=== PATIENT | male | born 1970 | race Hispanic/Latino ===

== ENCOUNTER 2017-10-10 13:02 | Emergency (ER) | payer OTHER ==
[2017-10-10] MEDS ORDERED: ALBUTEROL 2.5 MG/3 ML NEB SOL ONE ×3 (15:04→17:15)
[2017-10-10] MEDS ORDERED: IPRATROPIUM BROM 0.5MG/2.5ML ONE (15:04)
[2017-10-10] MEDS ORDERED: METHYLPREDNISOLONE 125 MG INJ ONE (15:19)
[2017-10-10] MEDS ORDERED: AZITHROMYCIN 250 MG TAB ONE (15:20)
[2017-10-10] MEDS ORDERED: NA CHLORIDE 0.9% 1,000 ML ONE (15:20)
[2017-10-10] MEDS ORDERED: CEFTRIAXONE/SWI 1gm 1 GM/10 ML SYR ONE (15:20)
[2017-10-10] MEDS ORDERED: predniSONE 20 MG TAB ONE (15:20)
[2017-10-10 15:22] LABS: Absolute Monocytes 1.1 K/uL (0.1-1.3); Basophils % 0.5 % (0-1.3); Eosinophils % 9.5 % (0-4.4); Hematocrit 44.4 % (39.6-49.0); Lymphocytes % 26.5 % (15.3-44.8); MCH 24.7 pg (27.0-35.0); MCV 77.5 fL (80-100); MPV 9.2 fL (7.6-11.3); Monocytes % 9.8 % (3.3-12.3); RBC Red Blood Cell Count 5.73 M/uL (4.33-5.43)
[2017-10-10 15:32] LABS: Bicarbonate 31 mEq/L (21-31); Glucose Level 107 mg/dL (65-120); Potassium 3.6 mEq/L (3.6-5.0); Sodium Level 142 mEq/L (135-145)
[2017-10-10 15:35] LABS: ALT/SGPT 25 IU/L (10-60); AST/SGOT 25 IU/L (10-42); Albumin 3.8 g/dL (3.2-5.5); Alkaline Phosphatase 85 IU/L (42-121); BUN Blood Urea Nitrogen 6 mg/dL (6-20); Bilirubin Total 0.6 mg/dL (0.3-1.2); Protein, Total 6.5 g/dL (6.0-8.3)
--- NOTE | 2017-10-10 16:43 | ER ---
Nurse's Notes [facility] Name: Maco Hardy Age: 47 yrs Sex: Male : 1970 Arrival Date: 10/10/2017 Time: 13:06 Bed 17 Private MD: Diagnosis: Asthma;Dyspnea;Hypoxemia Presentation: 10/10 13:28 Presenting complaint: Patient states: i think i have asthma that started yesterday, im hj short of breath and have wheezing; denies fever and chills;. Transition of care: patient was not received from another setting of care. Onset of symptoms was October 10, 2017. Care prior to arrival: None. 13:28 Method Of Arrival: Ambulatory hj 13:28 Acuity: CALIX[place] 3 hj Triage Assessment: 13:30 General: Appears in no apparent distress. uncomfortable, Behavior is calm, cooperative, hj appropriate for age. Pain: Denies pain. Cardiovascular: Capillary refill < 3 seconds Patient's skin is warm and dry. Historical: - Allergies: 13:30 No Known Drug Allergies; hj - Home Meds: 13:30 Sandra Oral [Active]; Claritin-D 24 Hour Oral [Active]; Flonase Nasal [Active]; hj - PMHx: 13:30 hemmorhoids; Pneumonia; seasonal allergies; hj - PSHx: 13:30 Cholecystectomy; hj - Immunization history:: Adult Immunizations up to date. - Family history:: not pertinent. - Social history:: Smoking status: Patient/guardian denies using tobacco. Screenin:54 Abuse screen: Denies threats or abuse. Nutritional screening: No deficits noted. em Tuberculosis screening: No symptoms or risk factors identified. Fall Risk None identified. Assessment: 13:30 Pain: Pain does not radiate. Pain began 1 day ago. hj 14:40 General: Appears in no apparent distress. uncomfortable, Behavior is calm, cooperative, em Denies fever. Pain: Denies pain. Neuro: Level of Consciousness is awake, alert, obeys commands, Oriented to person, place, time, situation. Cardiovascular: Capillary refill < 3 seconds Patient's skin is warm and dry. Respiratory: Airway is patent Respiratory effort is even, unlabored, Respiratory pattern is regular, symmetrical, Breath sounds are diminished bilaterally. Breath sounds with wheezes bilaterally. Onset: The symptoms/episode began/occurred yesterday, the patient has mild shortness of breath. GI: Abdomen is round non-distended. : No signs and/or symptoms were reported regarding the genitourinary system. EENT: No signs and/or symptoms were reported regarding the EENT system. Derm: Skin is intact, Skin is pink, warm \T\ dry. Musculoskeletal: Range of motion: intact in all extremities. 14:50 Reassessment: Patient appears in no apparent distress at this time. I agree with above iw assessment by Jose L Benavides LVN. 15:40 Reassessment: Patient appears in no apparent distress at this time. Patient and/or em family updated on plan of care and expected duration. Pain level reassessed. Patient is alert, oriented x 3, equal unlabored respirations, skin warm/dry/pink. 16:40 Reassessment: Patient appears in no apparent distress at this time. Patient is alert, em oriented x 3, equal unlabored respirations, skin warm/dry/pink. Reassessment: Dr. Macario notified, new orders received, will continue to monitor pt. Respiratory: Breath sounds with wheezes bilaterally. Denies shortness of breath. 17:40 Reassessment: Patient appears in no apparent distress at this time. Patient and/or em family updated on plan of care and expected duration. Pain level reassessed. pt reports feeling better, minimal wheezing auscultated, Dr. Macario notified, pt will be discharged shortly. Vital Signs: 13:30 BP 143 / 96; Pulse 80; Resp 18; Temp 98.5(TE); Pulse Ox 94% on R/A; Weight 104.33 kg; Height 5 ft. 10 in. (177.80 cm); Pain 0/10; 14:43 BP 163 / 93; Pulse 88; Resp 22; Pulse Ox 94% on R/A; Pain 0/10; em 15:38 BP 164 / 95; Pulse 94; Resp 20; Pulse Ox 99% on R/A; mh5 16:50 BP 176 / 101; Pulse 108; Resp 18; Pulse Ox 94% on R/A; mh5 17:40 BP 171 / 91; Pulse 107; Resp 20; Temp 97.2(TE); Pulse Ox 95% on R/A; Pain 0/10; em 13:30 Body Mass Index 33.00 (104.33 kg, 177.80 cm) ED Course: 13:06 Patient arrived in ED. mr 13:29 Triage completed. hj 13:30 Arm band placed on right wrist. hj 13:30 Patient maintains SpO2 saturation greater than 95% on room air. hj 14:35 Jose L Benavides LVN is Primary Nurse. em 14:44 Sebastián Macario MD is Attending Physician. gee 14:54 Patient has correct armband on for positive identification. Bed in low position. Call em light in reach. Side rails up X2. Pulse ox on. NIBP on. 14:54 No provider procedures requiring assistance completed. em 14:55 Inserted saline lock: 20 gauge in right antecubital area, using aseptic technique. em Blood collected. 14:55 Initial lab(s) drawn, by me, sent to lab. First set of blood cultures drawn by me. em 14:58 X-ray completed. Portable x-ray completed in exam room. Patient tolerated procedure kc2 well. 15:00 Chest Single View XRAY In Process Unspecified. EDMS 16:43 Joe Ochoa MD is Referral Physician. gee 18:05 IV discontinued, intact, bleeding controlled, No redness/swelling at site. Pressure em dressing applied. Administered Medications: 14:48 Drug: Albuterol - atroVENT (3:1) (2.5 mg - 0.5 mg) 3 ml Route: Nebulizer; em 15:58 Follow up: Response: No adverse reaction; Wheezing diminished em 15:15 Drug: NS 0.9% 1000 ml Route: IV; Rate: 1 bolus; Site: right antecubital; em 16:55 Follow up: IV Status: Completed infusion; IV Intake: 1000ml em 15:25 Drug: SOLU-Medrol 125 mg Route: IVP; Site: right antecubital; iw 15:58 Follow up: Response: No adverse reaction em 15:25 Drug: Rocephin - (cefTRIAXone) 1 grams Route: IVPB; Infused Over: 30 mins; Site: right iw antecubital; 15:32 Drug: Zithromax 500 mg Route: PO; em 15:59 Follow up: Response: No adverse reaction em 15:32 Drug: predniSONE 60 mg Route: PO; em 17:01 Follow up: Response: No adverse reaction em 15:51 Drug: Albuterol 5 mg Route: Inhalation; em 17:21 Follow up: Response: No adverse reaction em 17:01 Drug: Albuterol 5 mg Route: Inhalation; em 17:21 Follow up: Response: No adverse reaction em 17:03 Drug: Decadron - Dexamethasone 10 mg Route: IVP; Site: right antecubital; iw 17:21 Follow up: Response: No adverse reaction em Intake: 16:55 IV: 1000ml; Total: 1000ml. em Outcome: 16:43 Discharge ordered by . [facility] 18:05 Discharged to home ambulatory. em 18:05 Condition: good 18:05 Discharge instructions given to patient, Instructed on discharge instructions, follow up and referral plans. medication usage, Demonstrated understanding of instructions, follow-up care, medications, Prescriptions given X 4. 18:05 Patient left the ED. em Signatures: Dispatcher [employer] Sebastián Jean MD MD cha Rivera, Maria mr Benavides, Jose L, [employer] SWITCHBOARD OPERATOR [employer] SWITCHBOARD OPERATOR em Adore Yip RN RN iw Joaquin, Henry, RN RN hj Carr, Kelsie [facility] Shadia Hart [facility] Corrections: (The following items were deleted from the chart) 13:32 13:30 Pulse 80bpm; Resp 18bpm; Pulse Ox 96% RA; Temp 98.5F Temporal; 104.33 kg; Height hj 5 ft. 10 in.; BMI: 33.0; Pain 0/10; hj 13:32 13:30 Pulse 80bpm; Resp 18bpm; Pulse Ox 94% RA; Temp 98.5F Temporal; 104.33 kg; Height hj 5 ft. 10 in.; BMI: 33.0; Pain 0/10; hj
--- NOTE | 2017-10-10 16:43 | EDPHYS ---
Physician Documentation [facility] Name: Maco Hardy Age: 47 yrs Sex: Male : 1970 Arrival Date: 10/10/2017 Time: 13:06 Bed 17 Private MD: ED Physician Sebastián Macario HPI: 10/10 14:46 This 47 yrs old Male presents to ER via Ambulatory with complaints of Chest gee Pain, Asthma Exacerbation. 14:46 The patient or guardian reports chest pain that is located primarily in the anterior gee chest wall. Historical: - Allergies: 13:30 No Known Drug Allergies; hj - Home Meds: 13:30 Sandra Oral [Active]; Claritin-D 24 Hour Oral [Active]; Flonase Nasal [Active]; hj - PMHx: 13:30 hemmorhoids; Pneumonia; seasonal allergies; hj - PSHx: 13:30 Cholecystectomy; hj - Immunization history:: Adult Immunizations up to date. - Family history:: not pertinent. - Social history:: Smoking status: Patient/guardian denies using tobacco. ROS: 14:48 Constitutional: Negative for fever, chills, and weight loss, Eyes: Negative for injury, gee pain, redness, and discharge, ENT: Negative for injury, pain, and discharge, Neck: Negative for injury, pain, and swelling, Cardiovascular: Negative for chest pain, palpitations, and edema, Abdomen/GI: Negative for abdominal pain, nausea, vomiting, diarrhea, and constipation, Back: Negative for injury and pain, : Negative for injury, bleeding, discharge, and swelling, MS/Extremity: Negative for injury and deformity, Skin: Negative for injury, rash, and discoloration, Neuro: Negative for headache, weakness, numbness, tingling, and seizure, Psych: Negative for depression, anxiety, suicide ideation, homicidal ideation, and hallucinations, Allergy/Immunology: Negative for hives, rash, and allergies, Endocrine: Negative for neck swelling, polydipsia, polyuria, polyphagia, and marked weight changes, Hematologic/Lymphatic: Negative for swollen nodes, abnormal bleeding, and unusual bruising. 14:48 Respiratory: Positive for cough, shortness of breath, wheezing, inspiratory, expiratory. Exam: 14:48 Constitutional: This is a well developed, well nourished patient who is awake, alert, gee and in no acute distress. Head/Face: Normocephalic, atraumatic. Eyes: Pupils equal round and reactive to light, extra-ocular motions intact. Lids and lashes normal. Conjunctiva and sclera are non-icteric and not injected. Cornea within normal limits. Periorbital areas with no swelling, redness, or edema. ENT: Nares patent. No nasal discharge, no septal abnormalities noted. Tympanic membranes are normal and external auditory canals are clear. Oropharynx with no redness, swelling, or masses, exudates, or evidence of obstruction, uvula midline. Mucous membranes moist. Neck: Trachea midline, no thyromegaly or masses palpated, and no cervical lymphadenopathy. Supple, full range of motion without nuchal rigidity, or vertebral point tenderness. No Meningismus. Chest/axilla: Normal chest wall appearance and motion. Nontender with no deformity. No lesions are appreciated. Cardiovascular: Regular rate and rhythm with a normal S1 and S2. No gallops, murmurs, or rubs. Normal PMI, no JVD. No pulse deficits. Abdomen/GI: Soft, non-tender, with normal bowel sounds. No distension or tympany. No guarding or rebound. No evidence of tenderness throughout. Back: No spinal tenderness. No costovertebral tenderness. Full range of motion. Male : Normal genitalia with no discharge or lesions. Skin: Warm, dry with normal turgor. Normal color with no rashes, no lesions, and no evidence of cellulitis. MS/ Extremity: Pulses equal, no cyanosis. Neurovascular intact. Full, normal range of motion. Neuro: Awake and alert, GCS 15, oriented to person, place, time, and situation. Cranial nerves II-XII grossly intact. Motor strength 5/5 in all extremities. Sensory grossly intact. Cerebellar exam normal. Normal gait. Psych: Awake, alert, with orientation to person, place and time. Behavior, mood, and affect are within normal limits. 14:48 Respiratory: the patient does not display signs of respiratory distress, Respirations: normal, Breath sounds: rhonchi, wheezing: inspiratory expiratory Vital Signs: 13:30 BP 143 / 96; Pulse 80; Resp 18; Temp 98.5(TE); Pulse Ox 94% on R/A; Weight 104.33 kg; hj Height 5 ft. 10 in. (177.80 cm); Pain 0/10; 14:43 BP 163 / 93; Pulse 88; Resp 22; Pulse Ox 94% on R/A; Pain 0/10; em 15:38 BP 164 / 95; Pulse 94; Resp 20; Pulse Ox 99% on R/A; mh5 16:50 BP 176 / 101; Pulse 108; Resp 18; Pulse Ox 94% on R/A; mh5 17:40 BP 171 / 91; Pulse 107; Resp 20; Temp 97.2(TE); Pulse Ox 95% on R/A; Pain 0/10; em 13:30 Body Mass Index 33.00 (104.33 kg, 177.80 cm) MDM: 14:49 Data reviewed: vital signs, nurses notes, lab test result(s), EKG, radiologic studies, [facility] plain films. 14:57 Patient medically screened. [facility] 10/10 14:46 Order name: Comprehensive Metabolic Panel; Complete Time: 15:40 [facility] 10/10 14:46 Order name: CBC with Diff; Complete Time: 15:40 [facility] 10/10 14:46 Order name: Chest Single View XRAY [facility] 10/10 14:46 Order name: Flu; Complete Time: 16:42 [facility] 10/10 14:46 Order name: Blood Culture Adult (2) [facility] 10/10 15:40 Order name: BNP; Complete Time: 16:42 [facility] Administered Medications: 14:48 Drug: Albuterol - atroVENT (3:1) (2.5 mg - 0.5 mg) 3 ml Route: Nebulizer; em 15:58 Follow up: Response: No adverse reaction; Wheezing diminished em 15:15 Drug: NS 0.9% 1000 ml Route: IV; Rate: 1 bolus; Site: right antecubital; em 16:55 Follow up: IV Status: Completed infusion; IV Intake: 1000ml em 15:25 Drug: SOLU-Medrol 125 mg Route: IVP; Site: right antecubital; iw 15:58 Follow up: Response: No adverse reaction em 15:25 Drug: Rocephin - (cefTRIAXone) 1 grams Route: IVPB; Infused Over: 30 mins; Site: right iw antecubital; 15:32 Drug: Zithromax 500 mg Route: PO; em 15:59 Follow up: Response: No adverse reaction em 15:32 Drug: predniSONE 60 mg Route: PO; em 17:01 Follow up: Response: No adverse reaction em 15:51 Drug: Albuterol 5 mg Route: Inhalation; em 17:21 Follow up: Response: No adverse reaction em 17:01 Drug: Albuterol 5 mg Route: Inhalation; em 17:21 Follow up: Response: No adverse reaction em 17:03 Drug: Decadron - Dexamethasone 10 mg Route: IVP; Site: right antecubital; iw 17:21 Follow up: Response: No adverse reaction em Disposition: 10/10/17 16:43 Discharged to Home. Impression: Asthma, Dyspnea, Hypoxemia. - Condition is Stable. - Discharge Instructions: Asthma, Adult, Asthma, Adult, [id number], Hypoxemia. - Prescriptions for Albuterol Sulfate 2.5 mg /3 mL (0.083 %) Inhalation Solution for Nebulization - inhale 1 unit by NEBULIZATION route every 8 hours As needed; 1 box. Prednisone 20 mg Oral Tablet - take 2 tablet by ORAL route once daily for 5 days; 10 tablet. Albuterol Sulfate 90 mcg/actuation - inhale 1-2 puff by INHALATION route every 4-6 hours; 1 Inhaler. Zithromax 500 mg Oral Tablet - take 1 tablet by ORAL route once daily for 5 days; 5 tablet. - Medication Reconciliation Form, Thank You Letter, Antibiotic Education, Prescription Opioid Use, Work release form form. - Follow up: Private Physician; When: 2 - 3 days; Reason: Recheck today's complaints, Continuance of care, Re-evaluation by your physician. Follow up: Joe Ochoa; When: 2 - 3 days; Reason: Recheck today's complaints, Re-evaluation by your physician. - Problem is new. - Symptoms have improved. Signatures: Dispatcher [employer] Sebastián Jean MD MD cha Munoz, Edgar, SAMPLE DRILLER SAMPLE DRILLER Adore Carmichael RN RN iw Joaquin, Henry RN RN
[2017-10-10] MEDS ORDERED: DEXAMETHASONE 10 MG/ML VIAL ONE (17:15)
--- NOTE | 2017-10-10 18:03 | RAD REPORT ---
EXAM DESCRIPTION: Quirino Single View10/10/2017 3:01 pm CLINICAL HISTORY: sob COMPARISON: December 2016 FINDINGS: The lungs appear clear of acute infiltrate. The heart is normal size IMPRESSION: No acute abnormalities displayed
== END 2017-10-10 18:05 | disposition home or self-care (01) ==
LOC: ER 13:02
DX: R09.02 Hypoxemia (principal); J45.909 Unspecified asthma, uncomplicated
CPT/HCPCS: 36415; 71045; 80053; 83880; 85025; 87040; 87804; 94640; 96361; 96374; 96375; 99285; J0696; J1100; J2930; J7030; J7512